=== PATIENT | male | born 1995 | race Caucasian/White ===

== ENCOUNTER 2017-03-17 21:59 | Emergency (ER) | payer BC ==
[2017-03-17 22:15] VITALS: BP 120/82
--- NOTE | 2017-03-17 22:50 | EDM.PDOC ---
ED HPI GENERAL MEDICAL PROBLEM - General Chief Complaint: Lower Extremity Injury/Pain Stated Complaint: POSS INFECTED TOE Time Seen by Provider: 03/17/17 22:37 Source of Information: Reports: Patient History Limitations: Reports: No Limitations - History of Present Illness INITIAL COMMENTS - FREE TEXT/NARRATIVE: The patient presents with right great toe pain, redness and drainage. He cut his toe nails 2 days ago. He was at work and accidentally hit a tank with his toe and may have dropped something on it. He now has an infected ingrown toenail. He has no fever or chills. Onset: Today Duration: Hour(s): Location: Reports: Lower Extremity, Right (Great toe) Quality: Reports: Sharp Severity: Moderate Improves with: Reports: None Worsens with: Reports: Movement Context: Reports: Trauma (Hit it today at work) Associated Symptoms: Reports: No Other Symptoms Right 1-Hallux Pain Score (Numeric/FACES): 6 - Related Data Allergies Allergy/AdvReac Type Severity Reaction Status Date / Time No Known Allergies Allergy Verified 03/17/17 22:20 Home Meds: Home Meds Cephalexin [Keflex] 500 mg PO Q6HR #30 capsule 03/17/17 [Rx] Methylphenidate HCl [Concerta] 36 mg PO DAILY 03/17/17 [History] Minocycline [Minocin] 100 mg PO DAILY 03/17/17 [History] Past Medical History HEENT History: Reports: Other (See Below) 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 Psychiatric History: Reports: ADHD Dermatologic History: Reports: Other (See Below) Other Dermatologic History: acne - Past Surgical History HEENT Surgical History: Reports: Oral Surgery Social & Family History - Tobacco Use Smoking Status *Q: Never Smoker - Caffeine Use Caffeine Use: Reports: Coffee, Soda - Recreational Drug Use Recreational Drug Use: No Review of Systems - Review of Systems Review Of Systems: See Below Constitutional: Reports: No Symptoms Eyes: Reports: No Symptoms Ears: Reports: No Symptoms Nose: Reports: No Symptoms Mouth/Throat: Reports: No Symptoms Respiratory: Reports: No Symptoms Cardiovascular: Reports: No Symptoms GI/Abdominal: Reports: No Symptoms Genitourinary: Reports: No Symptoms Musculoskeletal: Reports: Other (Right great toe pain and redness) ED EXAM, GENERAL - Physical Exam Exam: See Below Exam Limited By: No Limitations General Appearance: Alert, No Apparent Distress Ears: Normal External Exam Nose: Normal Inspection Head: Atraumatic, Normocephalic Respiratory/Chest: No Respiratory Distress Extremities: Other (Erythema, edema and drainage to the medial aspect of the nail of the 2nd great toe.) Course - Vital Signs Last Recorded V/S: Last Vital Signs Temp 97.8 F 03/17/17 22:14 Pulse 71 03/17/17 22:14 Resp 20 03/17/17 22:14 BP 120/82 03/17/17 22:14 Pulse Ox 100 03/17/17 22:14 - Re-Assessments/Exams Free Text/Narrative Re-Assessment/Exam: 03/17/17 22:48 I will get the patient on some keflex and have him follow up with Dr Landaverde. He may need to nail removed. Departure - Departure Time of Disposition: 22:50 Disposition: Home, Self-Care 01 Condition: Good Clinical Impression: Ingrowing toenail with infection - Discharge Information Prescriptions: Cephalexin [Keflex] 500 mg PO Q6HR #30 capsule Referrals: Ruddy France MD [Primary Care Provider] - Forms: ED Department Discharge Additional Instructions: Soak your toe in warm soapy water 2 times per day and apply antibiotic ointment after. Take tylenol or motrin for pain. Call Dr Landaverde's office and see if he can remove ingrown toenail.
== END 2017-03-17 23:06 | disposition home or self-care (01) ==
LOC: JD.ED 21:59
DX: L60.0 Ingrowing nail (principal); F90.9 Attention-deficit hyperactivity disorder, unspecified type; Z98.818 Other dental procedure status; Z79.899 Other long term (current) drug therapy
CPT/HCPCS: 99283